=== PATIENT | male | born 1990 | race African-American/Black ===

== ENCOUNTER 2021-06-21 09:46 | Emergency (ER) | payer MEDICAID ==
[~2021-06-21] VITALS: Ht 177.8 cm; Wt 231.0 kg
[2021-06-21] MEDS ORDERED: ACETAMINOPHEN 325MG TABLET PO ONE (10:30)
[2021-06-21] MEDS ORDERED: IBUPROFEN 400MG TABLET PO ONE (10:30)
[2021-06-21 12:08] VITALS: BP 138/70
== END 2021-06-21 12:08 | disposition home or self-care (01) ==
LOC: ER 09:46
DX: M79.10 Myalgia, unspecified site (principal); R50.9 Fever, unspecified; F17.200 Nicotine dependence, unspecified, uncomplicated; Z20.822 Contact with and (suspected) exposure to COVID-19
CPT/HCPCS: 99283